=== PATIENT | female | born 1975 | race African-American/Black ===

== ENCOUNTER 2022-01-02 07:51 | Emergency (ER) | payer OTHER ==
[~2022-01-02] VITALS: Ht 175.3 cm; Wt 100.0 kg
[2022-01-02] MEDS ORDERED: METHYLPREDNISOLONE SOD SUCC 125 MG/2 ML VIAL IV ONE (08:00)
[2022-01-02] MEDS ORDERED: FAMOTIDINE 20MG/2ML VIAL IV ONE (08:00)
[2022-01-02] MEDS ORDERED: DIPHENHYDRAMINE 50MG/ML VIAL IV ONE (09:30)
[2022-01-02] MEDS ORDERED: KETOROLAC 30MG/ML VIAL IV ONE (09:30)
[2022-01-02] MEDS ORDERED: DIPH25CA83 PO (10:37)
[2022-01-02] MEDS ORDERED: P50 PO (10:37)
[2022-01-02] MEDS ORDERED: EPIN0.3P3 IM (10:37)
[2022-01-02 10:54] VITALS: BP 136/86
== END 2022-01-02 11:10 | disposition home or self-care (01) ==
LOC: ER 07:51
DX: T63.441A Toxic effect of venom of bees, accidental (unintentional), initial encounter (principal); R06.02 Shortness of breath; R03.0 Elevated blood-pressure reading, without diagnosis of hypertension; Y92.89 Other specified places as the place of occurrence of the external cause; J45.909 Unspecified asthma, uncomplicated
CPT/HCPCS: 93005; 96374; 96375; 99284; J1200; J1885; J2930; J3490